=== PATIENT | male | born 1990 | race Hispanic/Latino ===

== ENCOUNTER 2025-02-17 12:26 | Emergency (ER) | payer BC, OTHER ==
[~2025-02-17] VITALS: Ht 165.1 cm; Wt 83.9 kg
[2025-02-17 13:44] LABS: CORONAVIRUS COVID-19 AG NEGATIVE (NEGATIVE)
[2025-02-17 13:49] LABS: BASOPHILS % 0.4 % (0.0-1.0); EOSINOPHILS % 1.4 % (0.0-6.0); LYMPHOCYTES % 21.4 % (18.0-39.1); MONOCYTES % 6.1 % (4.4-11.3); NEUTROPHILS % 70.4 % (38.7-80.0); RED CELL DISTRIBUTION WIDTH 12.6 % (11.7-14.4)
[2025-02-17] MEDS: KETOROLAC TROMETHAMINE 30 MG/ML VIAL IV STA (13:58)
[2025-02-17] MEDS: SODIUM CHLORIDE 0.9% 1000ML 1,000 ML IV STA (13:59)
[2025-02-17 14:15] LABS: INR 0.87
[2025-02-17 14:36] LABS: EST GLOMERULAR FILTRATION RATE 69.0 ML/MIN (>=60)
[2025-02-17 15:05] VITALS: PULSE 87; RESP 18; TEMP 97.8
[2025-02-17 15:28] VITALS: BP 117/79; PULSE 77; RESP 16; TEMP 97.8; O2SAT 96
== END 2025-02-17 15:40 | disposition home or self-care (01) ==
LOC: ER 12:35
DX: R06.02 Shortness of breath (principal); R07.89 Other chest pain; I10 Essential (primary) hypertension; R51.9 Headache, unspecified; F17.210 Nicotine dependence, cigarettes, uncomplicated
CPT/HCPCS: 36415; 71045; 80053; 83880; 84484; 85025; 85379; 85610; 85730; 87426; 93005; 99283; J1885; J7030

== ENCOUNTER 2025-02-22 15:07 | Emergency (ER) | payer OTHER ==
[~2025-02-22] VITALS: Ht 165.1 cm; Wt 80.7 kg
[2025-02-22 17:14] LABS: BASOPHILS % 0.4 % (0.0-1.0); EOSINOPHILS % 2.5 % (0.0-6.0); LYMPHOCYTES % 35.8 % (18.0-39.1); MONOCYTES % 6.3 % (4.4-11.3); NEUTROPHILS % 54.9 % (38.7-80.0); RED CELL DISTRIBUTION WIDTH 12.5 % (11.7-14.4)
[2025-02-22 17:41] LABS: EST GLOMERULAR FILTRATION RATE 62.0 ML/MIN (>=60)
[2025-02-22] MEDS ORDERED: IOPAMIDOL 370 MG/ML 100 ML INFUS..BTL INJ ONE (18:01)
[2025-02-22 21:12] VITALS: PULSE 59; RESP 16; TEMP 97.9; O2SAT 98
== END 2025-02-22 21:15 | disposition home or self-care (01) ==
LOC: ER 18:29
DX: K42.9 Umbilical hernia without obstruction or gangrene (principal); K40.90 Unilateral inguinal hernia, without obstruction or gangrene, not specified as recurrent; R10.33 Periumbilical pain; I10 Essential (primary) hypertension
CPT/HCPCS: 36415; 74177; 80053; 85025; 99284; Q9967